=== PATIENT | male | born 1945 | race American Indian/Alaskan Native ===

== ENCOUNTER 2017-07-29 08:47 | Outpatient (CLI) | payer MEDICARE ==
[2017-07-29 09:25] LABS: Blood Urea Nitrogen 13 mg/dL (9-20)
[2017-07-29] MEDS ORDERED: NACL ONE ×2 (09:52→10:17)
--- NOTE | 2017-07-30 11:19 | Cat Scan Report ---
CT ANGIO ABD/FEMORAL ABD AORTA: HISTORY: Abdominal aortic aneurysm without rupture. TECHNIQUE: Helical CT imaging with 1.25mm reconstructions following IV contrast. Sagittal and Coronal 2D reformatted images. 3 dimensional volume rendering technique. Stenosis was measured using NASCET criteria. COMPARISON: 02/12/16. FINDINGS: ABDOMINAL AORTA: The infrarenal AAA containing mural thrombus has increased from 4.2 cm in diameter to 4.5 cm in diameter since 02/12/16. Mild diffuse calcifications in the remainder of the abdominal aorta are stable. There are moderate calcifications at the origins of the bilateral renal arteries with stenosis measuring approximately 60% bilaterally. 60-70% stenosis at the origin of the SMA. Less than 20% stenosis at the origin of the celiac axis. 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 ILIAC ARTERIES: The bilateral common iliac arteries are patent with less than 30% stenosis. Bilateral iliac stents are in place. The external iliac arteries are patent with less than 30% stenosis. 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 RIGHT LOWER EXTREMITY: Moderate atherosclerotic plaques are noted throughout the right superficial femoral and popliteal arteries. There is less than 40% stenosis. There are diffuse calcifications in the arterial structures distal to the knee suggesting multifocal stenosis. LEFT LOWER EXTREMITY: Moderate atherosclerotic plaques are noted throughout the left superficial femoral and popliteal arteries. There is less than 40% stenosis. There are diffuse arterial calcifications in the arterial structures distal to the knee suggesting multifocal stenosis. Impression: The infrarenal AAA measures a maximum diameter 4.5 cm.
== END 2017-07-29 08:48 | disposition home or self-care (01) ==
LOC: CT 08:47
PROVIDERS: ATTEND Surgery Vascular Surgery
DX: I70.213 Atherosclerosis of native arteries of extremities with intermittent claudication, bilateral legs (principal); I71.4 Abdominal aortic aneurysm, without rupture
CPT/HCPCS: 36415; 75635; 82565; 84520; Q9967